=== PATIENT | male | born 1965 | race Caucasian/White ===

== ENCOUNTER 2016-11-30 15:38 | Emergency (ER) | payer OTHER | END 2016-11-30 17:24 | disposition home or self-care (01) | LOC: FER 15:38 | DX: G43.919 Migraine, unspecified, intractable, without status migrainosus (principal); Z88.2 Allergy status to sulfonamides; Z88.8 Allergy status to other drugs, medicaments and biological substances | CPT/HCPCS: J1885; J2765; J2930 ==

== ENCOUNTER 2021-05-10 08:51 | Emergency (ER) | payer OTHER ==
[~2021-05-10 08:51] MED LIST: CLONIDINE HCL0.1 M1 PO; DIPHENHYDR IM; PERCOCET 10-321 EACH PO; PREVACID30 M1 PO; SYNTHROID50 MCG PO
[2021-05-10 09:23] LABS: EOSINOPHIL 6.4 % (0-5); HCT 41.1 % (42.0-52.0); HGB 13.7 g/dl (13.2-18.0); LYMPHOCYTE 32.9 % (15-48); MCH 29.7 pg (25.0-31.0); MCHC 33.3 g/dL (32.0-36.0); MONOCYTE 9.2 % (0-12); MPV 11.7 fL (6.0-9.5); NEUTROPHIL 48.8 % (41-80); NRBC 0; PLT 235 K/uL (150-400); RBC 4.62 M/uL (4.70-6.00); RDW 13.7 % (11.5-14.0); WBC 6.1 K/uL (4.0-10.5)
[2021-05-10 09:55] LABS: INR 1.02 (0.9-1.2); PROTHROMBIN TIME 12.8 SECONDS (11.8-13.4); PTT 28.8 SECONDS (24.4-34.7)
[2021-05-10 10:09] LABS: ALBUMIN 3.9 g/dL (3.4-5.0); BILIRUBIN - TOTAL 0.4 mg/dL (0.2-1.0); CREATININE 0.79 mg/dL (0.67-1.17); GLOBULIN (CALCULATION) 4.2 g/dL; POTASSIUM 3.3 mmol/L (3.5-5.1); TOTAL PROTEIN 8.1 g/dL (6.4-8.2)
== END 2021-05-10 11:54 | disposition home or self-care (01) ==
LOC: FER 08:51
PROVIDERS: Internal Medicine
DX: R07.89 Other chest pain (principal); I10 Essential (primary) hypertension; E87.6 Hypokalemia; Z82.49 Family history of ischemic heart disease and other diseases of the circulatory system; Z88.2 Allergy status to sulfonamides; Z88.5 Allergy status to narcotic agent; Z88.8 Allergy status to other drugs, medicaments and biological substances; Z79.899 Other long term (current) drug therapy
CPT/HCPCS: 36415; 71045; 80053; 84484; 85025; 85610; 85730; 93005; J2270; J3490

== ENCOUNTER 2021-05-12 12:54 | Emergency (ER) | payer OTHER ==
[2021-05-12 13:17] LABS: BASOPHIL 2.5 % (0-2); EOSINOPHIL 5.5 % (0-5); HCT 41.1 % (42.0-52.0); HGB 13.5 g/dl (13.2-18.0); LYMPHOCYTE 26.9 % (15-48); MCH 29.6 pg (25.0-31.0); MCHC 32.8 g/dL (32.0-36.0); MCV 90.1 fL (78.0-100.0); MONOCYTE 10.7 % (0-12); NEUTROPHIL 53.2 % (41-80); NRBC 0; PLT 232 K/uL (150-400); RBC 4.56 M/uL (4.70-6.00)
[2021-05-12 13:28] LABS: PROTHROMBIN TIME 12.6 SECONDS (11.8-13.4)
[2021-05-12 13:29] LABS: PTT 27.9 SECONDS (24.4-34.7)
[2021-05-12 13:37] LABS: BILIRUBIN - TOTAL 0.3 mg/dL (0.2-1.0); BUN/CREAT RATIO (CALC) 15.3 RATIO; CREATININE 0.72 mg/dL (0.67-1.17); GLOBULIN (CALCULATION) 4.3 g/dL; POTASSIUM 3.9 mmol/L (3.5-5.1); TOTAL PROTEIN 8.3 g/dL (6.4-8.2)
[2021-05-12] MEDS ORDERED: PRINIVIL10 MG PO (15:06)
== END 2021-05-12 15:33 | disposition home or self-care (01) ==
LOC: FER 12:54
PROVIDERS: Emergency Medicine
DX: I10 Essential (primary) hypertension (principal); Z88.2 Allergy status to sulfonamides; Z88.8 Allergy status to other drugs, medicaments and biological substances; Z88.5 Allergy status to narcotic agent
CPT/HCPCS: 36415; 71045; 80053; 84484; 85025; 85610; 85730; 93005; J2405; J3490

== ENCOUNTER 2021-11-15 18:32 | Emergency (ER) | payer OTHER ==
[~2021-11-15 18:32] MED LIST changes: +PRINIVIL10 MG PO
[2021-11-15 21:00] LABS: BUN/CREAT RATIO (CALC) 17.9 RATIO; CREATININE 0.84 mg/dL (0.67-1.17); POTASSIUM 3.7 mmol/L (3.5-5.1)
[2021-11-15] MEDS ORDERED: REGLAN10 MG PO (21:28)
[2021-11-15] MEDS ORDERED: RIZATRIPTAN10 M1 PO (21:28)
== END 2021-11-15 21:47 | disposition home or self-care (01) ==
LOC: FER 18:32
PROVIDERS: Internal Medicine
DX: G43.909 Migraine, unspecified, not intractable, without status migrainosus (principal); I10 Essential (primary) hypertension; Z79.899 Other long term (current) drug therapy; Z88.2 Allergy status to sulfonamides; Z88.6 Allergy status to analgesic agent
CPT/HCPCS: 36415; 80048; 96372; J2405; J2765; J3030; J3475; J7030

== ENCOUNTER 2022-06-03 19:44 | Emergency (ER) | payer OTHER ==
[~2022-06-03 19:44] MED LIST changes: +REGLAN10 MG PO; +RIZATRIPTAN10 M1 PO
== END 2022-06-03 22:05 | disposition home or self-care (01) ==
LOC: FER 19:44
DX: M79.605 Pain in left leg (principal); R25.2 Cramp and spasm; Z28.310 Unvaccinated for COVID-19; Z88.2 Allergy status to sulfonamides
CPT/HCPCS: 93971